=== PATIENT | female | born 1960 ===

== ENCOUNTER 2017-01-05 19:56 | Emergency (ER) | payer MEDICAID, OTHER ==
[2017-01-05 19:58] VITALS: BMI 21.8
[2017-01-05 20:04] VITALS: BP 132/79; PULSE 88; RESP 20; TEMP 98.1; O2SAT 100
--- NOTE | 2017-01-05 20:26 | C.PDOC ---
History Of Present Illness 56 y/o female with hx of psoriasis and eczema in past c/o 1 week hx of a rash to back, chest wall, arms and abdomen for one week thst she describes as a burning sensation. denies use of any new products. no fevers. pt seen in another ER a few days ago, was given a shot of decadron, and was prescribed hydroxyzine, which she finished and said helped a little, as well as calamine lotion. pt reports she has had this rash on and off over the last few years. pt has appt with political analyst on 02/02. Time Seen by Provider: 01/05/17 20:09 Chief Complaint (Nursing): Abnormal Skin Integrity History Per: Patient History/Exam Limitations: no limitations Onset/Duration Of Symptoms: Days (7) Current Symptoms Are (Timing): Still Present Quality Of Symptoms: Other (burning) Severity: Moderate Recent travel outside of the [place]: No Past Medical History Reviewed: Historical Data, Nursing Documentation, Vital Signs Vital Signs: Last Vital Signs Temp 98.1 F 01/05/17 20:00 Pulse 88 01/05/17 20:00 Resp 20 01/05/17 20:00 BP 132/79 01/05/17 20:00 Pulse Ox 100 01/05/17 21:09 - Medical History PMH: Anemia, Depression Surgical History: No Surg Hx Family History: States: Unknown Family Hx - Social History Hx Tobacco Use: Yes Hx Alcohol Use: Yes Hx Substance Use: No - Immunization History Hx Tetanus Toxoid Vaccination: No Hx Influenza Vaccination: No Hx Pneumococcal Vaccination: No Review Of Systems Constitutional: Negative for: Fever, Chills Cardiovascular: Negative for: Chest Pain Respiratory: Negative for: Cough Gastrointestinal: Negative for: Nausea, Vomiting, Abdominal Pain Skin: Positive for: Rash Neurological: Negative for: Weakness, Numbness Physical Exam - Physical Exam Appears: Non-toxic, No Acute Distress Skin: Warm, Dry, Rash (papules and patches to arms bilaterally (not in antecubital fossae), chest wall, entire back; pinkish-red color, few have silverly scale. ) Head: Atraumatic, Normacephalic Cardiovascular: Rhythm Regular, No Murmur Respiratory: Normal Breath Sounds, No Rales, No Rhonchi, No Wheezing Neurological/Psych: Oriented x3, Normal Speech, Normal Cognition ED Course And Treatment O2 Sat by Pulse Oximetry: 100 Medical Decision Making Medical Decision Making: pt with recurring rash with hx of psoriasis and eczema; rash has similar appearance to pitytriasis. pt given benadryl and antifungal meds with outpatient pmd and derm f/u Disposition Counseled Patient/Family Regarding: Diagnosis, Need For Followup, Rx Given - Disposition Referrals: [facility] [Outside] Phylicia Watts MD [Medical Doctor] - Disposition: HOME/ ROUTINE Disposition Time: 20:22 Condition: STABLE Additional Instructions: Apply thin layer of cream twice a day to affected areas. Take diphenhydramine by mouth every 6 hours for itch/burning sensation; this medicine makes you drowsy, so no operating machinery, driving or working when taking. If working, take at bedtime only. Try Aveeno eczema therapy products. Call [facility] to see if you can get a sooner dermatology appointment. Follow up with your PMD and dermatology. Return to ER for any worsening symptoms. Prescriptions: DiphenhydrAMINE [Benadryl] 25 mg PO Q6 #30 cap Ketoconazole 2% Cr [Nizoral] 1 appl TP BID #1 tube Instructions: Acute Rash (ED) Forms: General Discharge Instructions - Clinical Impression Clinical Impression: Rash and nonspecific skin eruption
== END 2017-01-05 20:37 | disposition home or self-care (01) ==
LOC: C.ER 19:56
DX: R21 Rash and other nonspecific skin eruption (principal)